=== PATIENT | female | born 1985 | race Caucasian/White ===

== ENCOUNTER 2019-07-08 21:34 | Emergency (ER) | payer OTHER ==
[~2019-07-08] VITALS: Ht 170.2 cm; Wt 81.7 kg
[2019-07-08] MEDS ORDERED: Vistaril25 MG PO (23:26)
== END 2019-07-08 23:38 | disposition home or self-care (01) ==
LOC: ER 21:34
DX: F41.9 Anxiety disorder, unspecified (principal); F43.9 Reaction to severe stress, unspecified
CPT/HCPCS: 93005; 93010; 99284-25

== ENCOUNTER 2020-09-14 15:15 | Emergency (ER) | payer OTHER ==
[~2020-09-14] VITALS: Ht 170.2 cm; Wt 73.9 kg
[~2020-09-14 15:15] MED LIST: Vistaril25 MG PO
== END 2020-09-14 15:37 | disposition home or self-care (01) ==
LOC: ER 15:15
DX: F41.9 Anxiety disorder, unspecified (principal); F43.9 Reaction to severe stress, unspecified
CPT/HCPCS: 99283